=== PATIENT | female | born 1970 | race Asian ===

== ENCOUNTER → 2017-09-03 | Outpatient (CLI) | payer BC ==
[2017-09-03 14:06] LABS: BASO % 0.6 % (0.0-2.0); EOS # 0.4 (0.0-0.7); EOS % 7.4 % (0-4.0); GRAN # 2.8 (1.4-6.5); GRAN % 52.1 % (42.2-75.2); HEMATOCRIT 38.1 % (37.0-47.0); HEMOGLOBIN 12.7 g/dl (12.5-16.0); LYMPH # 1.7 (1.2-3.4); LYMPH % 32.5 % (20.0-51.0); MEAN CELL VOLUME 87 fl (80.0-100.0); MEAN CORPUSCULAR HEMOGLOBIN 29 pg (27.0-31.0); MEAN CORPUSCULAR HGB CONC 33 g/dl (33.0-37.0); MEAN PLATELET VOLUME 11.6 fl (7.4-10.4); MONO # 0.4 (0.1-0.6); MONO % 7.2 % (1.7-9.3); PLATELET COUNT 234 K/mm3 (130-400); RED BLOOD COUNT 4.38 M/mm3 (4.10-5.30); REDCELL DISTRIBUTION WIDTH-CV 13.1 % (11.5-14.5)
[2017-09-03 14:22] LABS: ALBUMIN 3.6 gm/dL (3.5-5.0); BILIRUBIN,TOTAL 0.3 mg/dL (0.0-1.0); CALCIUM 8.9 mg/dL (8.4-10.2); CHOLESTEROL RISK RATIO 3.5; CREATININE, serum 0.67 mg/dL (0.52-1.25); POTASSIUM 3.6 mmol/L (3.4-5.0); TOTAL PROTEIN 7.3 gm/dL (6.4-8.2)
== END ==
LOC: COL.LAB 09:18
PROVIDERS: Family Medicine
DX: Z00.00 Encounter for general adult medical examination without abnormal findings (principal); Z13.220 Encounter for screening for lipoid disorders

== ENCOUNTER → 2018-02-17 | Outpatient (CLI) | payer BC | LOC: MC.RAD 10:56 | DX: Z12.31 Encounter for screening mammogram for malignant neoplasm of breast (principal); R92.0 Mammographic microcalcification found on diagnostic imaging of breast ==

== ENCOUNTER → 2018-02-19 | Outpatient (CLI) | payer BC | LOC: MC.RAD 14:25 | DX: R92.1 Mammographic calcification found on diagnostic imaging of breast (principal) ==

== ENCOUNTER → 2018-02-26 | Outpatient (CLI) | payer BC | LOC: MC.RAD 06:55 | DX: R92.0 Mammographic microcalcification found on diagnostic imaging of breast (principal); Z98.82 Breast implant status ==